=== PATIENT | female | born 1995 | race Caucasian/White ===

== ENCOUNTER 2017-11-01 16:19 | Emergency (ER) | payer MEDICAID ==
[~2017-11-01] VITALS: Ht 157.5 cm; Wt 83.0 kg
[2017-11-01] MEDS ORDERED: PENI250T2 PO (17:07)
[2017-11-01 17:26] LABS: URINE HCG NEGATIVE (NEG)
== END 2017-11-01 17:47 | disposition home or self-care (01) ==
LOC: ER 16:19
DX: K04.7 Periapical abscess without sinus (principal); F12.90 Cannabis use, unspecified, uncomplicated; Z79.2 Long term (current) use of antibiotics
CPT/HCPCS: 81025; 99283